=== PATIENT | female | born 1980 | race Caucasian/White ===

== ENCOUNTER → 2020-12-07 12:44 | Outpatient (BNVA) | payer BC, SELFPAY | PROVIDERS: Visit Provider Internal Medicine | DX: M25.50 Pain in unspecified joint (principal); R76.8 Other specified abnormal immunological findings in serum; R21 Rash and other nonspecific skin eruption; Z11.59 Encounter for screening for other viral diseases; Z79.899 Other long term (current) drug therapy; R53.83 Other fatigue; E55.9 Vitamin D deficiency, unspecified; R79.82 Elevated C-reactive protein (CRP); F17.210 Nicotine dependence, cigarettes, uncomplicated | CPT/HCPCS: 36415; 80053; 81003; 82310; 82533; 82607; 82728; 82784; 83516; 83540; 83735; 83970; 84100; 84439; 84443; 84550; 85025; 86140; 86160; 86617; 86704; 86803; 87340; 99204 ==